=== PATIENT | male | born 1995 | race African-American/Black ===

== ENCOUNTER 2017-11-26 15:10 | Emergency (ER) | payer MEDICAID, OTHER ==
[~2017-11-26] VITALS: Ht 162.6 cm; Wt 59.0 kg
[2017-11-26 15:26] VITALS: BP 96/69
[2017-11-26] MEDS ORDERED: IBUPROFEN 600 MG TAB PO ONE (16:45)
[2017-11-26] MEDS ORDERED: cefTRIAXone SOD 1,000 MG VL IM ONE (16:45)
== END 2017-11-26 17:29 | disposition home or self-care (01) ==
LOC: ER 15:27
DX: S80.811A Abrasion, right lower leg, initial encounter (principal); L08.9 Local infection of the skin and subcutaneous tissue, unspecified; F17.210 Nicotine dependence, cigarettes, uncomplicated; W19.XXXA Unspecified fall, initial encounter; Y93.I9 Activity, other involving external motion; Y92.89 Other specified places as the place of occurrence of the external cause; Y99.8 Other external cause status
CPT/HCPCS: 73590; 96372; 99284; J0696